=== PATIENT | male | born 1965 | race Caucasian/White ===

== ENCOUNTER 2017-02-13 11:40 | Day surgery (SDC) | payer OTHER ==
[~2017-02-13] VITALS: Ht 172.7 cm; Wt 99.8 kg
[~2017-02-13 11:40] MED LIST: ALLO10TA PO; D3400TAB PO; FLAG500T PO; LISI10TA4 PO; MERC50TA2 PO; MULT1TAB18 PO; OMEP20CA3 PO; PENT500C PO; SIMV40TA2 PO
[2017-02-13] MEDS ORDERED: LR 1,000 ML IV SCH ×3 (11:45→15:30)
[2017-02-13] MEDS ORDERED: CIPRODEX OTIC SUSP 7.5ML As Ordered ONE (14:36)
[2017-02-13] MEDS ORDERED: fentaNYL 100 MCG/2 ML INJECTION (J3010) As Ordered ONE (14:41)
[2017-02-13] MEDS ORDERED: MIDAZOLAM INJ 2 MG/2 ML VIAL (J2250) As Ordered ONE (14:41)
[2017-02-13] MEDS ORDERED: PROPOFOL 200 MG/20 ML VIAL As Ordered ONE (14:47)
[2017-02-13] MEDS ORDERED: dexameTHASONE 4 MG/ML 1ML VIAL (J1100) As Ordered ONE (14:47)
[2017-02-13] MEDS ORDERED: ONDANSETRON 4MG/2ML VIAL (J2405) As Ordered ONE (14:47)
[2017-02-13] MEDS ORDERED: LIDOCAINE 2% INJ 100 MG/5 ML SDV (FOR ANES.) As Ordered ONE (14:47)
[2017-02-13 15:25] VITALS: BP 165/92
[2017-02-13] MEDS ORDERED: fentaNYL 100 MCG/2 ML INJECTION (J3010) IV PRN (15:30)
[2017-02-13] MEDS ORDERED: ONDANSETRON 4MG/2ML VIAL (J2405) IV PRN (15:30)
--- NOTE | 2017-03-12 11:05 | RO ---
DATE OF PROCEDURE: 02/13/2017 PREPROCEDURE DIAGNOSIS: Right chronic serous otitis media. POSTPROCEDURE DIAGNOSIS: Right chronic serous otitis media. PROCEDURE PERFORMED: Right tympanostomy using the Triune tube. SURGEON: Edward Barclay MD [employer] CLERK: ANESTHESIA: General. CLINICAL PREAMBLE: This 51-year-old man presented to the office with a history of chronic right serous otitis media. He has been symptomatic while the tympanostomy tube remained in situ. The symptoms recur when the tube was extruded. Management options, including replacement of the right tympanostomy tube have been discussed. The patient understood and consented to the procedure. DESCRIPTION OF PROCEDURE: Patient was identified in preholding and had the right ear marked. He was brought to the operating room in stable condition. In the supine position on the operating room table, the patient received general anesthesia followed by laryngeal mask ventilation. The patient's head was turned to the left side to expose the right ear. Ear speculum was inserted and cerumen was debrided under binocular magnification. The right tympanic membrane was visualized and found to be intact and retracted. Myringotomy incision was made over the anterior-inferior quadrant of tympanic membrane. The right middle ear cleft was then suctioned clear of serous fluid. The Triune tympanostomy tube was successfully inserted. Ciprodex drops were instilled, and a cotton ball was used to occlude the ear canal. At the end of the end of the procedure, sponge and needle counts were correct. No complications were encountered. Estimated blood loss was nil. General anesthesia was reversed, and patient was awakened and taken to recovery room in stable condition.
== END 2017-02-13 16:04 | disposition home or self-care (01) ==
LOC: M SDC 11:40
PROVIDERS: ATTEND Otolaryngology
DX: H65.21 Chronic serous otitis media, right ear (principal); I10 Essential (primary) hypertension; E78.5 Hyperlipidemia, unspecified; M10.9 Gout, unspecified; G47.30 Sleep apnea, unspecified; F43.10 Post-traumatic stress disorder, unspecified; Z79.899 Other long term (current) drug therapy
CPT/HCPCS: 69436; J1100; J2250; J2405; J3010

== ENCOUNTER → 2019-01-26 | Outpatient (REF) | payer OTHER ==
[~2019-01-26] MED LIST changes: -OMEP20CA3 PO; +OMEP20CA4 PO
== END ==
LOC: M LAB REF 15:25
PROVIDERS: ATTEND Physician Assistant Medical
DX: H92.11 Otorrhea, right ear (principal)

== ENCOUNTER → 2020-05-05 | Outpatient (CLI) | payer OTHER ==
[~2020-05-05] MED LIST changes: +D31000TA2 PO; +MULT1TAB8 PO; +OMEP1CAP73 PO; -OMEP20CA4 PO; -SIMV40TA2 PO; +SIMV40TA20 PO
== END ==
LOC: M LABSMTC 11:18
PROVIDERS: ATTEND Anesthesiology
DX: Z01.812 Encounter for preprocedural laboratory examination (principal); Z20.828 Contact with and (suspected) exposure to other viral communicable diseases

== ENCOUNTER 2020-05-10 07:40 | Day surgery (SDC) | payer OTHER ==
[~2020-05-10] VITALS: Ht 175.3 cm; Wt 103.4 kg
[~2020-05-10 07:40] MED LIST changes: +LR 1,000 ML IV ONE
[2020-05-10] MEDS ORDERED: MIDAZOLAM INJ 2MG/2ML VIAL (J2250 PER 1MG) As Ordered ONE (08:34)
[2020-05-10] MEDS ORDERED: fentaNYL 100 MCG/2 ML INJECTION (J3010) As Ordered ONE ×2 (08:34→10:09)
[2020-05-10] MEDS ORDERED: CIPRODEX OTIC SUSP 7.5ML As Ordered ONE (09:27)
[2020-05-10] MEDS ORDERED: LIDOCAINE 2% 100MG/5ML SDV (FOR ANES.) As Ordered ONE (09:45)
[2020-05-10] MEDS ORDERED: METHYLENE BLUE 0.5% (5MG/ML) 10 ML AMP (PROVAYBLUE) As Ordered ONE (09:51)
[2020-05-10] MEDS ORDERED: EPINEPHrine 1MG/ML INJ 30ML MD-VIAL As Ordered ONE (09:51)
[2020-05-10] MEDS ORDERED: dexameTHASONE 4 MG/ML 1ML VIAL (J1100 PER 1MG) As Ordered ONE (09:52)
[2020-05-10] MEDS ORDERED: SUCCINYLCHOLINE 100 MG/5 ML SYRINGE (J0330) As Ordered ONE (09:52)
[2020-05-10] MEDS ORDERED: propofoL 200 MG/20 ML VIAL As Ordered ONE (09:52)
[2020-05-10] MEDS ORDERED: ONDANSETRON 4MG/2ML VIAL As Ordered ONE (09:52)
[2020-05-10] MEDS ORDERED: ACETAMINOPHEN 1000MG 100ML IV BTL (OFIRMEV) (J0131 PER 10MG) As Ordered ONE (10:01)
[2020-05-10] MEDS ORDERED: MEPERIDINE INJ 25 MG/ML VIAL (J2175) IV PRN (11:00)
[2020-05-10] MEDS ORDERED: oxyCODONE 5MG TAB PO PRN (11:00)
[2020-05-10] MEDS ORDERED: ONDANSETRON 4MG/2ML VIAL IV PRN (11:00)
[2020-05-10] MEDS ORDERED: METOCLOPRAMIDE INJ 10MG/2ML VIAL (J2765 PER 1) IV PRN (11:00)
[2020-05-10] MEDS ORDERED: fentaNYL 100 MCG/2 ML INJECTION (J3010) IV PRN (11:00)
[2020-05-10] MEDS ORDERED: LR 1,000 ML IV SCH ×2 (11:00)
[2020-05-10 11:40] VITALS: BP 150/77
--- NOTE | 2020-05-24 09:41 | RO ---
OPERATIVE NOTE DATE OF OPERATION: 05/10/2020 PREOPERATIVE DIAGNOSIS: Persistent effusion of the right middle ear and right eustachian tube dysfunction. POSTOPERATIVE DIAGNOSIS: Persistent effusion of the right middle ear and right eustachian tube dysfunction. PROCEDURE PERFORMED: Right tympanostomy using the Triune tube and balloon dilation of the right eustachian tube opening. SURGEON: Edward Barclay MD ANESTHESIA: General. CLINICAL PREAMBLE: This 55-year-old man presented to the office with a persistent effusion of the right middle ear. He has had previous tympanostomy to the right ear. He would do well while the tube was in situ. His symptoms would recur upon extrusion of the tympanostomy tube. Management options including the surgery listed above have been discussed. The patient understood and consented to the procedure. INTRAOPERATIVE FINDING: Serous otitis media in the right ear. OR NARRATION: The patient was identified in preholding and brought to the operating room in stable condition. In the supine position on the operating room table, the patient received anesthesia followed by orotracheal intubation. The patient was prepped and draped and the usual fashion for the procedure. The patient was turned to the left side to expose the right ear. Ear speculum was inserted and cerumen was debrided under binocular magnification using the light operating through the microscope. The right tympanic membrane was visualized and found to be intact and retracted. Myringtotomy incision was made over the anterior-inferior quadrant of the tympanic membrane. Copious amount of serous fluid was suctioned clear from the right middle ear cleft. The Triune tube was then successfully inserted into the right tympanic membrane. Ciprodex drops were instilled, and a cotton ball was used to occlude the ear canal. At this time, attention was turned to performing the dilation of the right eustachian tube. Both sides of the nasal cavity were decongested using vasoconstrictor-soaked pledgets. Using the 3-degree rigid nasal endoscope, the right eustachian tube opening was successfully visualized. Using the [employer] eustachian tube dilation balloon system, the balloon was successfully introduced into the opening of the right eustachian tube orifice under direct visualization. With proper positioning of the balloon, the balloon was then inflated to 12 atmospheric pressure for a total of 2 minutes. The balloon was then deflated and withdrawn. At the end of the procedure, sponge and instrument counts were correct. There was no complications encountered. Estimated blood loss was nil. General anesthesia was reversed, patient was extubated, and brought to the recovery room in stable condition. JENNIFER
== END 2020-05-10 11:41 | disposition home or self-care (01) ==
LOC: M SDC 07:40
PROVIDERS: ATTEND Otolaryngology
DX: H74.8X1 Other specified disorders of right middle ear and mastoid (principal); H69.91 Unspecified Eustachian tube disorder, right ear; I10 Essential (primary) hypertension; E78.00 Pure hypercholesterolemia, unspecified; F43.10 Post-traumatic stress disorder, unspecified; G47.33 Obstructive sleep apnea (adult) (pediatric); K21.9 Gastro-esophageal reflux disease without esophagitis; K50.90 Crohn's disease, unspecified, without complications; K52.9 Noninfective gastroenteritis and colitis, unspecified; K57.32 Diverticulitis of large intestine without perforation or abscess without bleeding; M10.9 Gout, unspecified; M12.9 Arthropathy, unspecified; M54.5 Low back pain; R06.83 Snoring; Z79.899 Other long term (current) drug therapy; Z87.820 Personal history of traumatic brain injury; Z87.891 Personal history of nicotine dependence; Z92.21 Personal history of antineoplastic chemotherapy
CPT/HCPCS: 69436; 69799; J0131; J0330; J1100; J2250; J2405; J3010; Q9968

== ENCOUNTER → 2022-04-30 | Outpatient (REF) | payer OTHER ==
[~2022-04-30] MED LIST changes: -D31000TA2 PO; +LISI10TA22 PO; -LISI10TA4 PO; -LR 1,000 ML IV ONE; +VITA100093 PO
== END ==
LOC: M LAB REF 17:09
PROVIDERS: ATTEND Physician Assistant Medical
DX: H73.001 Acute myringitis, right ear (principal)

== ENCOUNTER → 2022-06-27 | Outpatient (CLI) | payer OTHER | LOC: M LABSMTC 09:08 | PROVIDERS: ATTEND Anesthesiology | DX: Z01.812 Encounter for preprocedural laboratory examination (principal); Z20.822 Contact with and (suspected) exposure to COVID-19 ==

== ENCOUNTER 2022-07-02 08:47 | Day surgery (SDC) | payer OTHER ==
[~2022-07-02] VITALS: Ht 175.3 cm; Wt 91.6 kg
[2022-07-02] MEDS ORDERED: LR 1,000 ML IV SCH ×2 (09:10→10:55)
[2022-07-02] MEDS ORDERED: ESCI5SOL3 PO (09:25)
[2022-07-02] MEDS ORDERED: ONDANSETRON 4MG 2ML VIAL As Ordered ONE (09:27)
[2022-07-02] MEDS ORDERED: LIDOCAINE 2% 100MG/5ML SDV (FOR ANES.) As Ordered ONE (09:27)
[2022-07-02] MEDS ORDERED: propofoL 200 MG/20 ML VIAL As Ordered ONE (09:27)
[2022-07-02] MEDS ORDERED: fentaNYL 100 MCG/2 ML INJECTION As Ordered ONE (09:37)
[2022-07-02] MEDS ORDERED: MIDAZOLAM INJ 2MG/2ML VIAL As Ordered ONE (09:37)
[2022-07-02] MEDS ORDERED: CIPRODEX OTIC SUSP 7.5ML As Ordered ONE (10:18)
[2022-07-02] MEDS ORDERED: ACETAMINOPHEN 1000MG 100ML IV BAG As Ordered ONE (10:40)
[2022-07-02] MEDS ORDERED: HYDROMORPHONE HCL 0.5 MG/ 0.5 ML SYRINGE IV PRN (10:55)
[2022-07-02] MEDS ORDERED: fentaNYL 100 MCG/2 ML INJECTION IV PRN (10:55)
[2022-07-02] MEDS ORDERED: ONDANSETRON 4MG 2ML VIAL IV PRN (10:55)
[2022-07-02] MEDS ORDERED: oxyCODONE 5MG TAB PO PRN (10:55)
[2022-07-02 12:36] VITALS: BP 137/70
== END 2022-07-02 12:40 | disposition home or self-care (01) ==
LOC: M SDC 08:47
PROVIDERS: ATTEND Otolaryngology
DX: H69.81 Other specified disorders of Eustachian tube, right ear (principal); I10 Essential (primary) hypertension; E78.5 Hyperlipidemia, unspecified; M10.9 Gout, unspecified; G47.33 Obstructive sleep apnea (adult) (pediatric); K57.92 Diverticulitis of intestine, part unspecified, without perforation or abscess without bleeding; K50.90 Crohn's disease, unspecified, without complications; K21.9 Gastro-esophageal reflux disease without esophagitis; F41.9 Anxiety disorder, unspecified; F43.10 Post-traumatic stress disorder, unspecified; Z87.891 Personal history of nicotine dependence; Z79.899 Other long term (current) drug therapy; Z92.21 Personal history of antineoplastic chemotherapy
CPT/HCPCS: 69436; J1100; J2250; J2405; J3010

== ENCOUNTER → 2022-08-03 | Outpatient (CLI) | payer OTHER ==
[~2022-08-03] MED LIST changes: +ESCI5SOL3 PO
== END ==
LOC: M RAD 08:14
PROVIDERS: ATTEND Internal Medicine
DX: M54.16 Radiculopathy, lumbar region (principal); M51.26 Other intervertebral disc displacement, lumbar region; M51.27 Other intervertebral disc displacement, lumbosacral region

== ENCOUNTER 2022-10-24 13:49 | Emergency (ER) | payer BC, OTHER ==
[~2022-10-24] VITALS: Ht 175.3 cm; Wt 91.0 kg
[2022-10-24] MEDS ORDERED: NS 1,000 ML IV ONE (15:35)
[2022-10-24] MEDS ORDERED: KETOROLAC 30 MG/ML 1ML VIAL IV ONE (15:35)
[2022-10-24] MEDS ORDERED: dexAMETHasone 20MG/5ML VIAL IV ONE (15:35)
[2022-10-24] MEDS ORDERED: ISOVUE-370 76% 100ML VIAL As Ordered ONE (16:00)
[2022-10-24 16:01] LABS: BASO % 0.2 % (0.0-1.0); EOS # 0.1 10^3/uL (0.0-0.5); EOS % 0.8 % (0.0-3.0); HEMATOCRIT 35.1 % (42.0-52.0); HEMOGLOBIN 12.7 g/dl (13.5-17.5); LYMPH # 0.6 10^3/uL (1.5-5.0); LYMPH % 7.1 % (24.0-44.0); MEAN CORPUSCULAR HEMOGLOBIN 37.9 pg (27.0-33.0); MEAN CORPUSCULAR HGB CONC 36.2 g/dl (32.0-36.5); MEAN CORPUSCULAR VOLUME 104.8 fl (80.0-96.0); MONO # 0.6 10^3/uL (0.0-0.8); MONO % 6.8 % (2.0-8.0); NEUTROPHILS # 7.6 10^3/uL (1.5-8.5); NEUTROPHILS % 84.5 % (36.0-66.0); PLATELET COUNT, AUTOMATED 177 10^3/uL (150-450); RED BLOOD COUNT 3.35 10^6/uL (4.30-6.10)
[2022-10-24 16:20] LABS: ERYTHROCYTE SEDIMENTATION RATE 51 mm/hr (0-20)
[2022-10-24] MEDS ORDERED: IBUP-1022 PO (17:28)
[2022-10-24] MEDS ORDERED: AMOX500C PO (17:28)
[2022-10-24 17:33] VITALS: BP 123/66; TEMP 98.9; O2SAT 99
== END 2022-10-24 17:37 | disposition home or self-care (01) ==
LOC: M ED 13:49
DX: J02.0 Streptococcal pharyngitis (principal); I10 Essential (primary) hypertension; Z79.2 Long term (current) use of antibiotics; Z79.811 Long term (current) use of aromatase inhibitors; Z79.810 Long term (current) use of selective estrogen receptor modulators (SERMs); Z79.899 Other long term (current) drug therapy
CPT/HCPCS: 70491; 80047; 83605; 85025; 85652; 86140; 87040; 96361; 96374; 99283; J1100; J1885; Q9967

== ENCOUNTER 2023-09-02 10:21 | Day surgery (SDC) | payer OTHER ==
[~2023-09-02] VITALS: Ht 172.7 cm; Wt 94.8 kg
[~2023-09-02 10:21] MED LIST changes: +AMOX500C PO; +CALC600T60 PO; +IBUP-1022 PO
[2023-09-02] MEDS: LR 1,000 ML IV SCH ×2 (11:18→13:40)
[2023-09-02] MEDS ORDERED: MIDAZOLAM INJ 2MG/2ML VIAL As Ordered ONE (12:22)
[2023-09-02] MEDS ORDERED: fentaNYL 100 MCG/2 ML INJECTION As Ordered ONE (12:22)
[2023-09-02] MEDS ORDERED: propofoL 200 MG/20 ML VIAL As Ordered ONE (12:23)
[2023-09-02] MEDS ORDERED: ONDANSETRON 4MG 2ML VIAL As Ordered ONE (12:23)
[2023-09-02] MEDS ORDERED: LIDOCAINE 2% 100MG/5ML SDV (FOR ANES.) As Ordered ONE (12:23)
[2023-09-02] MEDS: EPINEPHrine 1MG/ML INJ 30ML MD-VIAL As Ordered ONE (12:51)
[2023-09-02] MEDS: CIPRODEX OTIC SUSP 7.5ML As Ordered ONE (12:55)
[2023-09-02] MEDS ORDERED: ONDANSETRON 4MG 2ML VIAL IV PRN (13:25)
[2023-09-02] MEDS ORDERED: fentaNYL 100 MCG/2 ML INJECTION IV PRN (13:25)
[2023-09-02] MEDS: oxyCODONE 5MG TAB PO PRN (13:40)
[2023-09-02] MEDS: HYDROMORPHONE HCL 0.5 MG/ 0.5 ML SYRINGE IV PRN (13:45)
[2023-09-02 14:26] VITALS: BP 153/76; TEMP 97.5; O2SAT 93
[2023-09-02] MEDS ORDERED: IBUPROFEN 800 MG TAB PO STA (14:34)
== END 2023-09-02 15:15 | disposition home or self-care (01) ==
LOC: M SDC 10:21
PROVIDERS: ATTEND Otolaryngology
DX: H69.81 Other specified disorders of Eustachian tube, right ear (principal); Z88.8 Allergy status to other drugs, medicaments and biological substances; I10 Essential (primary) hypertension; E78.5 Hyperlipidemia, unspecified; Z92.21 Personal history of antineoplastic chemotherapy; K57.92 Diverticulitis of intestine, part unspecified, without perforation or abscess without bleeding; K50.90 Crohn's disease, unspecified, without complications; K21.9 Gastro-esophageal reflux disease without esophagitis; F43.10 Post-traumatic stress disorder, unspecified; F41.9 Anxiety disorder, unspecified; G47.33 Obstructive sleep apnea (adult) (pediatric); Z79.899 Other long term (current) drug therapy
CPT/HCPCS: 69436; 69799; 93005; J0171; J1100; J1170; J2250; J2405; J3010

== ENCOUNTER → 2025-02-23 | Outpatient (REF) ==
[~2025-02-23] MED LIST changes: -IBUP-1022 PO; +IBUP600T42 PO
== END ==
LOC: M PLAIMG 09:34
PROVIDERS: ATTEND Internal Medicine
DX: R52 Pain, unspecified (principal)